=== PATIENT | male | born 1970 | race Caucasian/White ===

== ENCOUNTER → 2025-07-03 15:33 | Outpatient (REF) | payer MEDICARE, OTHER, SELFPAY | LOC: PAVMRI 15:33 | PROVIDERS: ATTENDING PHYSICIAN Family Medicine; FAMILY PHYSICIAN Family Medicine | DX: M25.571 Pain in right ankle and joints of right foot (principal); S93.409A Sprain of unspecified ligament of unspecified ankle, initial encounter; M25.371 Other instability, right ankle | CPT/HCPCS: 73721 ==

== ENCOUNTER → 2025-09-10 11:34 | Outpatient (REF) | payer MEDICARE, OTHER, SELFPAY | LOC: RAD 11:34 | PROVIDERS: FAMILY PHYSICIAN Family Medicine | DX: S93.411A Sprain of calcaneofibular ligament of right ankle, initial encounter (principal); S93.491A Sprain of other ligament of right ankle, initial encounter; M25.371 Other instability, right ankle | CPT/HCPCS: 76882 ==